=== PATIENT | female | born 1985 | race Two or more races ===

== ENCOUNTER 2023-10-07 01:05 | Inpatient (IN) | payer MEDICAID ==
[~2023-10-07] VITALS: Ht 157.5 cm; Wt 63.8 kg
[2023-10-07 01:35] LABS: Basophils # (auto) 0.1 10 ^3/uL (0-0.2); Basophils % (auto) 1.1 % (0.0-2.0); Eosinophils # (auto) 0.3 10 ^3/uL (0-0.8); Eosinophils % (auto) 2.5 % (0.0-7.0); Hematocrit 31.4 % (36.0-46.0); Hemoglobin 10.4 g/dL (12.2-16.2); Lymphocytes # (auto) 4.6 10 ^3/uL (0.4-5.4); Lymphocytes % (auto) 43.1 % (10.0-50.0); Mean Corpuscular Hemoglobin 23.9 pg (28.0-32.0); Mean Corpuscular Hgb Conc. 33.1 g/dL (32.0-36.0); Mean Corpuscular Volume 72.2 fL (80.0-100.0); Monocytes # (auto) 1.8 10 ^3/uL (0-1.3); Monocytes % (auto) 16.3 % (0.0-12.0); Nucleated Red Blood Cells % 0.1 %; Red Blood Cells 4.36 10^6/uL (4.0-5.20); Red Cell Distribution Width 19.6 % (11.8-14.3); White Blood Cell 10.8 10^3/uL (4.4-10.8)
[2023-10-07 01:52] LABS: Albumin 3.9 g/dL (3.2-4.8); Alkaline Phosphatase 55 U/L (46-116); Anion Gap 9 (5-15); Aspartate Aminotransferase 11 U/L (13-40); Blood Urea Nitrogen 13 mg/dL (9-23); Calcium 8.9 mg/dL (8.7-10.4); Carbon Dioxide 23 mmol/L (20-30); Chloride 108 mmol/L (98-107); Glucose 126 mg/dL (74-106); Lipase 43 U/L (12-53); Potassium 3.4 mmol/L (3.5-5.1); Sodium 140 mmol/L (136-145)
[2023-10-07 01:53] LABS: Bilirubin, Total 0.8 mg/dL (0.2-1.0); Total Protein 6.9 g/dL (5.7-8.2)
[2023-10-07 01:56] LABS: Alanine Aminotransferase < 9 U/L (7-40)
[2023-10-07] MEDS: SODIUM CHLORIDE 0.9% 1,000 ML IV ONE (02:37)
[2023-10-07] MEDS: MORPHINE SULFATE 4 MG/ML SYR/VIAL IV ONE (02:38)
[2023-10-07] MEDS: ONDANSETRON HCL 4 MG/2 ML VIAL IV ONE (02:38)
[2023-10-07] MEDS: IOHEXOL 300 MG/ML 100ML BOTTLE IJ ONE (03:39)
[2023-10-07] MEDS: CEFEPIME 2GM/50ML NS 50 ML IV ONE (06:14)
[2023-10-07] MEDS ORDERED: ACETAMINOPHEN 325 MG TAB PO PRN (06:30)
[2023-10-07] MEDS ORDERED: NITROGLYCERIN 0.4 MG SL TAB SL PRN (06:30)
[2023-10-07] MEDS ORDERED: MORPHINE SULFATE INJ 2 MG/ml SYRG IV PRN (06:30)
[2023-10-07 06:38] LABS: Urine Bacteria None Seen /hpf (None Seen)
[2023-10-07 06:49] LABS: Urine Blood 3+ /uL (Negative); Urine Clarity Clear (Clear); Urine Color Light-Yellow (Yellow); Urine Mucus FEW (None Seen); Urine Protein, UAD 1+ (Negative); Urine Urobilinogen Normal (Negative); Urine WBC 27 /hpf (0 - 5)
[2023-10-07 06:56] LABS: Urine Specific Gravity > 1.050 (1.001-1.035)
[2023-10-07 09:19] VITALS: BP 114/72; PULSE 55; RESP 16; TEMP 98.1; O2SAT 100
[2023-10-07] MEDS: POTASSIUM CHL 20 Meq TABLET PO ONE (10:04)
[2023-10-07] MEDS: ENOXAPARIN SOD 30 MG/0.3 ML SYRINGE SC SCH (10:06)
[2023-10-07] MEDS: MORPHINE SULFATE INJ 2 MG/ml SYRG IV PRN (10:06)
[2023-10-07] MEDS: SODIUM CHLORIDE 0.9% 1,000 ML IV SCH (10:06)
[2023-10-07] MEDS: POTASSIUM CHL 20MEQ/100ML 100 ML IV ONE (10:07)
[2023-10-07] MEDS ORDERED: CHOL20007 PO (10:41)
[2023-10-07] MEDS ORDERED: FERR1TAB36 PO (10:41)
[2023-10-07 12:00] VITALS: BP 108/70; PULSE 55; RESP 16; TEMP 98; O2SAT 99
[2023-10-07] MEDS: CEFEPIME 1GM/ 50ML 50 ML IV SCH (15:42)
[2023-10-07 17:00] VITALS: BP 109/68; PULSE 63; RESP 16; TEMP 98.2; O2SAT 100
[2023-10-07] MEDS: HYDROcodone-ACET 5/325MG TAB PO PRN (18:04)
[2023-10-07 21:00] VITALS: BP 106/58; PULSE 78; RESP 18; TEMP 97.9; O2SAT 100
[2023-10-07] MEDS: ONDANSETRON HCL 4 MG/2 ML VIAL IV PRN (21:00)
[2023-10-08] VITALS (7 sets, daily range): BP systolic 102–134; BP diastolic 62–85; PULSE 51–76; RESP 15–20; TEMP 97.4–98.1; O2SAT 99–100
[2023-10-08 06:47] LABS: Eosinophils # (auto) 0.2 10 ^3/uL (0-0.8); Lymphocytes # (auto) 2.5 10 ^3/uL (0.4-5.4); Monocytes # (auto) 0.6 10 ^3/uL (0-1.3); Neutrophils # (auto) 2.8 10 ^3/uL (1.6-8.6); Nucleated Red Blood Cells % 0.1 %; White Blood Cell 6.2 10^3/uL (4.4-10.8)
[2023-10-08 06:53] LABS: Basophils # (auto) 0.2 10 ^3/uL (0-0.2); Basophils % (auto) 3.1 % (0.0-2.0); Eosinophils % (auto) 2.7 % (0.0-7.0); Hematocrit 29.9 % (36.0-46.0); Hemoglobin 9.4 g/dL (12.2-16.2); Mean Corpuscular Hemoglobin 23.2 pg (28.0-32.0); Mean Corpuscular Hgb Conc. 31.4 g/dL (32.0-36.0); Mean Corpuscular Volume 73.9 fL (80.0-100.0); Monocytes % (auto) 9.3 % (0.0-12.0); Neutrophils % (auto) 44.9 % (37.0-80.0); Red Blood Cells 4.05 10^6/uL (4.0-5.20); Red Cell Distribution Width 19.8 % (11.8-14.3)
[2023-10-08 06:57] LABS: Chloride 109 mmol/L (98-107); Sodium 141 mmol/L (136-145)
[2023-10-08 06:58] LABS: Anion Gap 9 (5-15); Calcium 8.2 mg/dL (8.7-10.4); Carbon Dioxide 23 mmol/L (20-30)
[2023-10-08 07:03] LABS: BUN/Creatinine Ratio 9.5 (10.0-20.0); Blood Urea Nitrogen 9 mg/dL (9-23); Glucose 88 mg/dL (74-106)
[2023-10-08] MEDS: PANTOPRAZOLE 40 MG TAB PO ONE (21:28)
[2023-10-09] VITALS (7 sets, daily range): BP systolic 98–125; BP diastolic 53–83; PULSE 59–78; RESP 16–20; TEMP 97.5–98.6; O2SAT 98–100
[2023-10-09] MEDS: PANTOPRAZOLE 40 MG TAB PO SCH (04:46)
[2023-10-09 07:28] LABS: Chloride 111 mmol/L (98-107); Sodium 140 mmol/L (136-145)
[2023-10-09 07:29] LABS: Anion Gap 3 (5-15); Carbon Dioxide 26 mmol/L (20-30)
[2023-10-09 07:30] LABS: Calcium 8.9 mg/dL (8.7-10.4)
[2023-10-09 07:32] LABS: Eosinophils # (auto) 0.2 10 ^3/uL (0-0.8); Eosinophils % (auto) 3.2 % (0.0-7.0); Hematocrit 31.2 % (36.0-46.0); Mean Corpuscular Volume 72.7 fL (80.0-100.0); Monocytes # (auto) 0.7 10 ^3/uL (0-1.3); Neutrophils # (auto) 2.2 10 ^3/uL (1.6-8.6); Red Blood Cells 4.29 10^6/uL (4.0-5.20)
[2023-10-09 07:34] LABS: Basophils # (auto) 0.2 10 ^3/uL (0-0.2); Glucose 133 mg/dL (74-106); Hemoglobin 10.1 g/dL (12.2-16.2); Lymphocytes # (auto) 2.2 10 ^3/uL (0.4-5.4); Lymphocytes % (auto) 39.8 % (10.0-50.0); Mean Corpuscular Hemoglobin 23.5 pg (28.0-32.0); Mean Corpuscular Hgb Conc. 32.3 g/dL (32.0-36.0); Monocytes % (auto) 13.6 % (0.0-12.0); Neutrophils % (auto) 40.4 % (37.0-80.0); Red Cell Distribution Width 19.3 % (11.8-14.3); White Blood Cell 5.4 10^3/uL (4.4-10.8)
[2023-10-09 07:35] LABS: BUN/Creatinine Ratio 5.8 (10.0-20.0); Blood Urea Nitrogen < 5 mg/dL (9-23)
[2023-10-09] MEDS ORDERED: LACTULOSE 20Gm/30ML SOLN PO PRN (11:30)
[2023-10-09] MEDS: LACTULOSE 20Gm/30ML SOLN PO ONE (15:42)
[2023-10-09 15:52] LABS: Urine Bacteria None Seen /hpf (None Seen)
[2023-10-09 16:04] LABS: Urine Blood Negative /uL (Negative); Urine Clarity Clear (Clear); Urine Color Colorless (Yellow); Urine Protein, UAD Negative (Negative); Urine Specific Gravity 1.004 (1.001-1.035); Urine Urobilinogen Normal (Negative); Urine WBC <1 /hpf (0 - 5)
[2023-10-09] MEDS ORDERED: CIPR500T4 PO (18:28)
[2023-10-10 09:00] LABS: Hepatitis B Surface Antigen Negative (Negative)
[2023-10-10 09:43] LABS: Hepatitis C Antibody Negative (Negative)
== END 2023-10-09 18:55 | disposition home or self-care (01) | DRG 463 ==
LOC: ER 01:05 → OVERFLOW 06:31 → EAST 09:28
PROVIDERS: ADMIT Internal Medicine; ATTEND Internal Medicine
DX: N13.6 Pyonephrosis (principal); E87.6 Hypokalemia; R31.29 Other microscopic hematuria; Z83.3 Family history of diabetes mellitus; Z82.49 Family history of ischemic heart disease and other diseases of the circulatory system; Z79.4 Long term (current) use of insulin; Z79.899 Other long term (current) drug therapy
CPT/HCPCS: 36415; 74177; 76775; 80048; 80053; 81001; 83690; 85025; 86803; 87086; 87340; 93306; 96361; 96365; 96375; G0378; J0692; J2405; J3480